=== PATIENT | male | born 1950 | race Caucasian/White ===

== ENCOUNTER 2022-08-13 12:26 | Outpatient (CLI) | payer MEDICARE | END 2022-08-13 12:27 | disposition home or self-care (01) | LOC: TBSIIMAG 12:26 | PROVIDERS: ATTEND Nurse Practitioner Family | DX: M47.26 Other spondylosis with radiculopathy, lumbar region (principal); M16.11 Unilateral primary osteoarthritis, right hip; M47.27 Other spondylosis with radiculopathy, lumbosacral region; M47.25 Other spondylosis with radiculopathy, thoracolumbar region | CPT/HCPCS: 72120; 72148 ==

== ENCOUNTER 2022-09-08 10:47 | Outpatient (CLI) | payer MEDICARE | END 2022-09-08 10:48 | disposition home or self-care (01) | LOC: BICRAD 10:47 | PROVIDERS: ATTEND Specialist | DX: S22.31XA Fracture of one rib, right side, initial encounter for closed fracture (principal) | CPT/HCPCS: 71120 ==

== ENCOUNTER 2022-09-28 08:48 | Outpatient (CLI) | payer MEDICARE | END 2022-09-28 08:49 | disposition home or self-care (01) | LOC: BICCT 08:48 | PROVIDERS: ATTEND Specialist | DX: S22.31XA Fracture of one rib, right side, initial encounter for closed fracture (principal); R91.1 Solitary pulmonary nodule | CPT/HCPCS: 71250 ==

== ENCOUNTER 2023-05-17 08:26 | Outpatient (CLI) | payer MEDICARE | END 2023-05-17 08:27 | disposition home or self-care (01) | LOC: MRI 08:26 | PROVIDERS: ATTEND Specialist | DX: M47.22 Other spondylosis with radiculopathy, cervical region (principal); M47.26 Other spondylosis with radiculopathy, lumbar region | CPT/HCPCS: 72141; 72148 ==

== ENCOUNTER 2023-06-29 12:20 | Outpatient (CLI) | payer MEDICARE ==
[2023-06-29] MEDS ORDERED: Magnevist 469MG/ML 20 ML VIAL ONE ×2 (13:14)
== END 2023-06-29 12:21 | disposition home or self-care (01) ==
LOC: MRI 12:20
PROVIDERS: ATTEND Specialist
DX: G93.89 Other specified disorders of brain (principal); G95.89 Other specified diseases of spinal cord; Q04.0 Congenital malformations of corpus callosum
CPT/HCPCS: 70553; 72142; A9579

== ENCOUNTER 2023-07-01 07:25 | Outpatient (CLI) | payer MEDICARE ==
[2023-07-01] MEDS ORDERED: Iopamidol 370 76% 100 ML VIAL ONE (13:40)
== END 2023-07-01 07:26 | disposition home or self-care (01) ==
LOC: NM 07:25
PROVIDERS: ATTEND Otolaryngology Plastic Surgery within the Head & Neck
DX: E21.3 Hyperparathyroidism, unspecified (principal); E04.2 Nontoxic multinodular goiter
CPT/HCPCS: 70492; 78072; 82565; A9500; 82310; 83970; Q9967